=== PATIENT | male | born 1960 | race Caucasian/White ===

== ENCOUNTER → 2020-09-06 | Outpatient (CLI) | payer OTHER ==
[~2020-09-06] MED LIST: CALC200T3 PO; CYAN3000 SL; LACT1CAP8 PO; MELA1TAB11 PO; [UNRECOGNIZED DRUG - CODE] PO
--- NOTE | 2020-09-06 15:15 | RAD ---
EXAM: Lumbar spine, 2 views. HISTORY: Pain. COMPARISON: None. FINDINGS: 2 views of the lumbar spine are obtained. There is levoscoliosis centered at L3. There is degenerative endplate remodeling with disc space narrowing and facet arthropathy at L4-L5 and L5-S1. There is a mild chronic appearing wedge compression fracture of T12. There is an incidental hypoplastic left T12 rib. IMPRESSION: 1. Multilevel degenerative change, primarily at the lower lumbar levels 2. Mild chronic wedge deformity at T12. 3. Mild scoliosis. Electronically signed by: Amalia Goddard MD (09/06/2020 3:12 PM) [id number]
== END ==
LOC: RAD 12:24
PROVIDERS: ATTEND Family Medicine
DX: M47.817 Spondylosis without myelopathy or radiculopathy, lumbosacral region (principal); M43.8X4 Other specified deforming dorsopathies, thoracic region; M41.86 Other forms of scoliosis, lumbar region
CPT/HCPCS: 72100

== ENCOUNTER → 2021-07-28 | Outpatient (CLI) | payer OTHER ==
--- NOTE | 2021-07-28 10:36 | KCIC ---
EXAM: Brain MRI without contrast. HISTORY: Disequilibrium. Cognitive impairment. Falls. TECHNIQUE: Multiplanar, multisequence magnetic resonance imaging of the brain was performed without c ontrast. COMPARISON: None. FINDINGS: There is no restricted diffusion to suggest acute or subacute infarction. There is no mass effect or midline shift. There is no hydrocephalus. There are a few scattered foci of T2/FLAIR hyperintensity within the cerebral white matter, a nonspec ific finding. There is a small focus of signal change within the medial left parietal lobe cortex and subcortical white matter, the appearance of which favors a chronic infarct. There is a tiny focus of susceptibility effect in this location likely due to chronic microhemorrhage. There is a similar-shabbir earing tiny chronic cortical infarct involving the posterior medial right frontal lobe. The orbits are unremarkable. There is paranasal sinus mucosal thickening. There are left greater than right maxillary sinus mucous retention cysts. The mastoid air cells are clear. There are normal flow voids within the cerebral vessels. No calvarial lesion is seen. IMPRESSION: 1. No acute intracranial finding. 2. Scattered foci of signal change within the cerebral white matter, most commonly due to chronic sma ll vessel disease in patients of this age. 3. 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 There is also a suspected tiny chronic cortical infarct involving the posterior medial right frontal lobe. 4. Cerebral volume loss. Electronically signed by: Amalia Goddard MD (07/28/2021 10:34 AM) [id number]
== END ==
LOC: KCIC MRI 09:25
PROVIDERS: ATTEND Nurse Practitioner Family
DX: I73.9 Peripheral vascular disease, unspecified (principal); R42 Dizziness and giddiness; G31.84 Mild cognitive impairment of uncertain or unknown etiology; R29.6 Repeated falls; J34.89 Other specified disorders of nose and nasal sinuses; J34.1 Cyst and mucocele of nose and nasal sinus
CPT/HCPCS: 70551

== ENCOUNTER → 2021-08-26 | Day surgery (SDC) | payer OTHER ==
[~2021-08-26] VITALS: Ht 172.7 cm; Wt 99.0 kg
[~2021-08-26] MED LIST changes: +CHOL5000 PO; +FINA5TAB4 PO; +HYDR25TA PO; +IV RINGERS,LACTATED 1000ML 1,000 ML IV SCH; +LIDOCAINE 2% PF 5 ML VIAL. ONE; +OLAN7.5T3 PO; +PROPOFOL 10 MG/ML (20ML) VIAL. IV ONE; +RISP3TAB23 PO; +TAMS0.4C97 PO
[2021-08-26 06:25] VITALS: BP 119/76
[2021-08-26 08:16] VITALS: BP 117/75
--- NOTE | 2021-08-26 09:56 | CONS ---
DATE OF CONSULTATION: 08/26/2021 UPDATE HISTORY AND PHYSICAL REFERRING PHYSICIAN: Dr. Chris Salas. REASON FOR CONSULTATION: History of colon polyps, family history of colon cancer. HISTORY OF PRESENT ILLNESS: A 61-year-old male whose past medical history is significant for prior hep C with sustained viral response, history of colonic polyps, GERD who is seen for interval colon exam. Bowel habits are regular without diarrhea or constipation. Family history is positive for colon cancer with his father. He has had previous history of polyps. He is otherwise without additional complaints. PAST HISTORY: History of hep C, cleared; osteoarthrosis; history of colonic polyps. ALLERGIES: None. MEDICATIONS: Finasteride, hydroxyzine, lactobacillus, Zyprexa, Risperdal, Flomax. FAMILY AND SOCIAL HISTORY: Significant for colon cancer with his father. PAST SURGICAL HISTORY: Noncontributory. REVIEW OF SYSTEMS: Per records. PHYSICAL EXAMINATION: GENERAL: Reveals a well-nourished, well-developed male. VITAL SIGNS: Temperature is 97, pulse 72, respiratory rate . LUNGS: Clear. CARDIOVASCULAR: Reveals an S1, S2, without S3, S4 or appreciable murmur. ABDOMEN: Soft abdomen, normal bowel sounds, without appreciable hepatosplenomegaly. EXTREMITIES: Reveals no cyanosis, clubbing or edema.. IMPRESSION: Family history of colon cancer with history of colon polyps. Surveillance exam is recommended at this time. Risks and benefits of procedure including risk of perforation were discussed. The patient is willing to proceed at this time. JASVIR/SHANDRA DR: River TID: [id number]
== END | disposition home or self-care (01) ==
LOC: SURG 06:02
PROVIDERS: ATTEND Internal Medicine Gastroenterology
DX: Z12.11 Encounter for screening for malignant neoplasm of colon (principal); K64.0 First degree hemorrhoids; K63.89 Other specified diseases of intestine; M19.90 Unspecified osteoarthritis, unspecified site; F41.9 Anxiety disorder, unspecified; F32.9 Major depressive disorder, single episode, unspecified; Z79.899 Other long term (current) drug therapy; Z98.890 Other specified postprocedural states; Z86.19 Personal history of other infectious and parasitic diseases; Z72.89 Other problems related to lifestyle; Z86.010 Personal history of colon polyps; Z80.0 Family history of malignant neoplasm of digestive organs
CPT/HCPCS: 45378; J2704

== ENCOUNTER 2021-10-07 07:57 | Emergency (ER) | payer OTHER ==
[~2021-10-07] VITALS: Ht 177.8 cm; Wt 97.0 kg
[~2021-10-07 07:57] MED LIST changes: -IV RINGERS,LACTATED 1000ML 1,000 ML IV SCH; -LIDOCAINE 2% PF 5 ML VIAL. ONE; -PROPOFOL 10 MG/ML (20ML) VIAL. IV ONE
[2021-10-07 08:05] VITALS: BP 107/74
[2021-10-07] MEDS ORDERED: NEOMY/BACITR/POLYMYXIN OINT PACKET. TP ONE (08:30)
[2021-10-07] MEDS ORDERED: DIPH,PERTUSS(ACELL),TET VAC/PF 0.5 ML SYRINGE. VAX IM ONE (08:30)
[2021-10-07] MEDS ORDERED: LIDOCAINE 2%/EPI 1:100,000 20 ML VIAL. INJ ONE (08:30)
[2021-10-07] MEDS ORDERED: CLINDAMYCIN HCL 150 MG CAPSULE. PO ONE (08:30)
--- NOTE | 2021-10-07 08:35 | PHYS DOC ---
Past Medical History Past Medical History: Other Additional Past Medical Histor: Pt reports, "some mental stuff." Past Surgical History: No Surgical History Smoking Status: Never Smoker Alcohol Use: Occasionally Drug Use: None Social History Narrative: specifically denies IV drug use Social History Patient reports he lives at home with his brother and feels safe. General Adult EDM: Chief Complaint: SKIN PROBLEM HPI: HPI: Patient presents to the emergency department from triage with a left lower leg abscess on his posterior calf since Sunday. Patient reports pain at 6 out of 10, constant, worse with walking. Patient states he took Tylenol a few times which helped his pain. Patient denies any feelings of fever, rigors, malaise. Patient does not have diabetes, denies IV drug use or injections of any kind. There is a 3 cm diameter area of erythema on the posterior left calf with mild fluctuance. Review of Systems: Review of Systems: Constitutional: Denies fever or chills Eyes: Denies redness or eye pain HENT: Denies nasal congestion or sore throat Respiratory: Denies cough or shortness of breath Cardiovascular: Denies chest pain or palpitations GI: Denies abdominal pain, nausea, or vomiting : Denies dysuria or hematuria Musculoskeletal: Denies back pain or joint pain Integument: Denies rash; reports abscess posterior left calf Neurologic: Denies headache, focal weakness or sensory changes Complete systems were reviewed and found to be within normal limits, except as documented in this note. Heart Score: C/O Chest Pain: N/A Family History: Family History: Unremarkable family history Current Medications: Current Medications Medications (Trade) Dose Ordered Sig/Nova Start Time Stop Time Status Last Admin Dose Admin Clindamycin HCl (Cleocin) 300 mg 1X ONCE 10/07/21 08:30 10/07/21 08:31 Diphtheria/ Tetanus/Acell Pertussis (ADACEL TDap SYRINGE) 0.5 ml ONCE ONCE 10/07/21 08:30 10/07/21 08:31 Lidocaine/ Epinephrine (LIDOCAINE 2%-EPI 1:100,000 multi-dose) 20 ml 1X ONCE 10/07/21 08:30 10/07/21 08:31 Neomycin/ Polymyxin/ Bacitracin (Triple Antibiotic Ointment) 1 pkt 1X ONCE 10/07/21 08:30 10/07/21 08:31 Allergies: Allergies: Allergies Coded Allergies Type Severity Reaction Last Updated Verified No Known Drug Allergies 10/07/21 No Physical Exam: PE: Constitutional: Well developed, well nourished, no acute distress, non-toxic appearance HENT: Normocephalic, atraumatic Eyes: Conjunctiva normal, no discharge Neck: Normal range of motion, no tenderness, supple Lungs & Thorax: No respiratory distress, equal chest rise and fall, lungs clear to auscultation bilaterally, normal chest wall excursion Cardiovascular: Normal S1/S2 heart sounds, +2 peripheral pulses, no murmurs nor gallops Abdomen: Soft, no tenderness Skin: Warm, dry, 3 cm area of erythema on posterior left calf - mildly fluctuant and warm Back: No tenderness, no CVA tenderness Extremities: No tenderness, ROM intact, no edema Neurologic: Alert and oriented X 3, normal motor function, normal sensory function, no focal deficits noted Psychologic: Affect normal, judgment normal Current Patient Data: Vital Signs: Vital Signs Date Time Temp Pulse Resp B/P (MAP) Pulse Ox O2 Delivery O2 Flow Rate FiO2 10/07/21 08:05 98.1 95 14 107/74 (85) 96 98.1 EKG: EKG: [] Radiology/Procedures: Radiology/Procedures: [] Course & Med Decision Making: Course & Med Decision Making 61-year-old male presenting to ED through triage with a history of left lower leg abscess since Sunday of this week. Patient is not diabetic, not immunocompromised, denies IV drug use or injections of any kind. Abscess is mildly fluctuant, erythematous. Patient is afebrile with no signs of systemic infection, resting comfortably in bed. Plan for abscess I&D, and outpatient oral antibiotics. Kylah Disclaimer: Kylah Disclaimer: This electronic medical record was generated, in whole or in part, using a voice recognition dictation system. Incision and Drainage Incision and Drainage : Site: Left posterior lower extremity calf I & D Procedure: betadine prep, sterile drapes applied, sterile dressing applied Progress Patient with abscess on the left calf. Verbal consent obtained from patient after discussing indications for procedure and procedural plan, as well as risks of procedure. Local anesthetic applied - 2% lidocaine with epi. [.........] Departure Departure Impression: Primary Impression: Abscess Disposition: 01 HOME / SELF CARE / HOMELESS Condition: STABLE Referrals: REFUGIO QUIJANO MD (PCP) Patient Instructions: Abscess, [id number], Incision and Drainage, Care After, Insect Bite, [id number] Additional Instructions: Do not soak your wound. You may shower. Clean wound daily with soap and water. Change dressing 2 times daily. Use over the counter antibiotic ointment with each dressing change. Scripts Hydrocodone Bit/Acetaminophen (HYDROCODONE-APAP 5-325 ) 1 Tab Tablet 0.5-1 TAB PO PRN Q6HRS PRN for PAIN, #6 TAB 0 Refills Prov: REFUGIO HERMAN DO 10/07/21 Clindamycin Hcl (CLINDAMYCIN HCL) 300 Mg Capsule 1 CAP PO TID for Infection for 7 Days, #21 CAP Prov: REFUGIO HERMAN DO 10/07/21 REFUGIO HERMAN DO Oct 07, 2021 08:35
[2021-10-07] MEDS ORDERED: CLIN-94 PO (09:20)
[2021-10-07] MEDS ORDERED: HYDR-2761 PO (09:20)
== END 2021-10-07 09:51 | disposition home or self-care (01) ==
LOC: ER 09:21
DX: L02.416 Cutaneous abscess of left lower limb (principal)
CPT/HCPCS: 10060; 90471; 90715; 99283; J3490

== ENCOUNTER → 2021-12-05 | Outpatient (CLI) | payer OTHER ==
[~2021-12-05] MED LIST changes: +CLIN-94 PO; +HYDR-2761 PO
--- NOTE | 2021-12-06 08:32 | CARD ---
MR#: [id number] Date of Study: 12/05/2021 Ordering Physician: EILEEN THORNE, Referring Physician: EILEEN THORNE, Tech: Dorothy Anderson [facility] APPROVED REPORT EXAM: Two-dimensional and M-mode echocardiogram with Doppler and color Doppler. Other Information Quality : AverageHR: 69bpm Rhythm : NSR INDICATION Dyspnea RISK FACTORS Hypertension 2D DIMENSIONS RVDd3.2 (2.9-3.5cm)Left Atrium(2D)3.4 (1.6-4.0cm) IVSd1.1 (0.7-1.1cm)Aortic Root(2D)3.4 (2.0-3.7cm) LVDd3.0 (3.9-5.9cm)LVOT Diameter2.1 (1.8-2.4cm) PWd1.1 (0.7-1.1cm)LVDs1.9 (2.5-4.0cm) FS (%) 35.7 %SV23.1 ml LVEF(%)66.9 (>50%) Aortic Valve AoV Peak Vazquez.110.9cm/sAoV VTI18.6cm AO Peak GR.4.9mmHgLVOT Peak Vazquez.89.9cm/s AO Mean GR.2mmHgAVA (VMAX)2.72cm2 Mitral Valve MV E Wfxdyjxs48.8cm/sMV DECEL [id number] MV A Swxvwqjj14.0cm/sE/A Ratio0.7 Pulmonary Valve PV Peak Dmfvkbim99.6cm/s Tricuspid Valve TR P. Xqsghzpt452ry/sTR Peak Gr.23mmHg LEFT VENTRICLE The left ventricle is normal size. There is normal left ventricular wall thickness. The left ventricu lar systolic function is normal and the ejection fraction is within normal range. Estimated ejection fraction 60%. There is normal LV segmental wall motion. Tissue Doppler imaging reveals mild left vent ricular diastolic dysfunction. RIGHT VENTRICLE The right ventricle is normal size. There is normal right ventricular wall thickness. The right ventr icular systolic function is normal. ATRIA The left atrium size is normal. The right atrium size is normal. The interatrial septum is intact wit h no evidence for an atrial septal defect or patent foramen ovale as noted on 2-D or Doppler imaging. AORTIC VALVE The aortic valve is normal in structure and function. Doppler and Color Flow revealed no significant aortic regurgitation. There is no significant aortic valvular stenosis. MITRAL VALVE The mitral valve is normal in structure and function. There is no evidence of mitral valve prolapse. There is no mitral valve stenosis. Doppler and Color Flow revealed no mitral valve regurgitation note d. TRICUSPID VALVE The tricuspid valve is normal in structure and function. Doppler and Color Flow revealed trace tricus pid regurgitation. Estimated PAP 26-28 mmHg. There is no tricuspid valve stenosis. PULMONIC VALVE Doppler and Color Flow revealed no pulmonic valvular regurgitation. There is no pulmonic valvular marcelo nosis. GREAT VESSELS The aortic root is normal in size. The ascending aorta is normal in size. The IVC is normal in size a nd collapses >50% with inspiration. PERICARDIAL EFFUSION There is no evidence of significant pericardial effusion. Critical Notification Critical Value: No <Conclusion> The left ventricular systolic function is normal and the ejection fraction is within normal range. E stimated ejection fraction 60%. There is normal LV segmental wall motion. Signed by : Jorge L Solis, Electronically Approved : 12/06/2021 08:32:15
== END ==
LOC: ECHO 07:38
PROVIDERS: ATTEND Internal Medicine Cardiovascular Disease
DX: R06.02 Shortness of breath (principal)
CPT/HCPCS: 93306; C8929

== ENCOUNTER → 2021-12-16 | Outpatient (CLI) | payer OTHER ==
--- NOTE | 2021-12-16 08:37 | RAD ---
Two-view chest dated 12/16/2021 8:34 AM Comparison: 09/25/2012 CLINICAL INDICATION: Cough FINDINGS: PA and lateral views obtained. Heart and mediastinal contours within normal limits. Clear. No consoli dation or pleural effusion. No pneumothorax. Prominent perihilar linear markings. IMPRESSION: No acute radiographic abnormality. Stable findings compared to 09/25/2012. Electronically signed by: Chris Seo MD (12/16/2021 8:35 AM) [id number]
== END ==
LOC: RAD 08:12
PROVIDERS: ATTEND Family Medicine
DX: R05.9 Cough, unspecified (principal)
CPT/HCPCS: 71046

== ENCOUNTER → 2022-02-14 | Outpatient (CLI) | payer OTHER ==
[~2022-02-14] MED LIST changes: +BARIUM SULFATE 105% 1,900 ML SUSP PO ONE
--- NOTE | 2022-02-14 10:42 | RAD ---
EXAMINATION: DG BARIUM ENEMA (CONTRAST ENEMA) CLINICAL HISTORY: INCOMPLETE COLONOSCOPY. TECHNIQUE: Single-contrast enema performed utilizing thin barium after insertion of a rectal tube. - Number of Images: 10 - Fluoroscopy Time: 2.1 minutes COMPARISON: None FINDINGS: No visualized filling defect. No evidence of diverticulosis. IMPRESSION: Unremarkable contrast enema. Electronically signed by: Carrington Griffiths DO (02/14/2022 10:40 AM) [id number]
== END ==
LOC: RAD 08:17
PROVIDERS: ATTEND Internal Medicine Gastroenterology
DX: Z53.9 Procedure and treatment not carried out, unspecified reason (principal)
CPT/HCPCS: 74270